=== PATIENT | male | born 2005 | race Caucasian/White ===

== ENCOUNTER 2024-12-08 16:25 | Emergency (ER) | payer OTHER ==
[2024-12-08] MEDS ORDERED: Sodium Bicarb 50 MEQ/50 ML Abboject 8.4% SYRINGE ONE ×2 (16:39→18:11)
[2024-12-08 16:53] LABS: #Basophils 0.06 10x3/uL (0.0-0.2); #Eosinophils 0.14 10x3/uL (0.0-0.5); #Monocytes 0.42 10x3/uL (0.0-1.1); #Neutrophils 2.45 10x3/uL (1.5-8.4); %Basophils 1.3 % (0.0-2.0); %Eosinophils 3.0 % (0.0-6.0); %Lymphocytes 34.3 % (18.0-47.0); %Monocytes 9.0 % (0.0-10.0); %Neutrophils 52.4 % (40.0-75.0); Hematocrit 38.4 % (38.8-50.0); Hemoglobin 13.1 g/dL (13.5-17.5); Mean Corpuscular Hemoglobin 30.0 pg (27.0-33.0); Mean Corpuscular Volume 88.1 fL (81.2-95.1); Platelet Count 234 10x3/uL (150-450); Red Blood Cell (RBC) Count 4.36 10x6/uL (4.32-5.72); White Blood Cell (WBC) Count 4.67 10x3/uL (3.5-10.5)
[2024-12-08 17:11] LABS: Acetaminophen Less than 10 mcg/mL (Less than 10); Magnesium 1.9 mg/dL (1.7-2.2); Salicylate Less than 8.0 mg/dL (Less than 8.0)
[2024-12-08 17:12] LABS: Troponin I Less than 0.010 ng/mL (< 0.028)
[2024-12-08 17:30] LABS: Cocaine Metabolite Screen Negative (Negative); THC/Cannabinoid Screen Negative (Negative); Tricyclic Screen Negative (Negative)
[2024-12-08 17:34] LABS: ALT (SGPT) 14 U/L (Less than 45); AST (SGOT) 19 U/L (11-34); Albumin 4.0 g/dL (3.1-4.5); Alkaline Phosphatase 47 U/L (50-130); BUN (Urea Nitrogen) 28 mg/dL (8.9-20.6); Bilirubin, Total 0.3 mg/dL (0.3-1.2); Calc. Creatinine Clearance 0 mL/min (70-130); Calcium 8.0 mg/dL (7.8-10.44); Carbon Dioxide 21 mmol/L (22-29); Globulin 2.1 g/dL (2.4-3.5); Glucose 161 mg/dL (70-105)
[2024-12-08 17:45] LABS: Anion Gap 13 mmol/L (10-20); Chloride 111 mmol/L (98-107); Potassium 4.0 mmol/L (3.5-5.1); Sodium 141 mmol/L (136-145)
[2024-12-08] MEDS ORDERED: Glucagon 1 MG/ML KIT ONE (20:00)
== END 2024-12-08 20:58 | disposition short-term general hospital (02) ==
LOC: CSHERS 16:25
DX: T44.7X1A Poisoning by beta-adrenoreceptor antagonists, accidental (unintentional), initial encounter (principal); I45.4 Nonspecific intraventricular block; Z55.6 Problems related to health literacy
CPT/HCPCS: 36416; 51701; 80053; 80306; 80307; 83735; 84484; 85025; 93005; 96374; 96375; 96376; J1611